=== PATIENT | female | born 1995 | race Caucasian/White ===

== ENCOUNTER → 2018-09-17 | Outpatient (CLI) | payer OTHER ==
[~2018-09-17] MED LIST: AMOX500C PO; ISOVUE-370 76% 100ML VIAL (Q9967) As Ordered ONE; MAGICMW SSP
--- NOTE | 2018-09-17 21:17 | REP ---
HYSTEROSALPINGOGRAM: Patient was referred for hysterosalpingogram. Referring clinician catheterized the cervix and injected the contrast. I obtained fluoroscopic images. Uterine cavity fills well with no filling defect. There is prompt opacification of bilateral fallopian tubes. They are normal in caliber. There is free intraperitoneal spillage bilaterally. IMPRESSION: Bilateral fallopian tube patency. 0.2 minutes fluoroscopy time utilized. Electronically Signed by Dex Schuler MD 09/18/2018 10:05 A
== END ==
LOC: M RADPRO 12:07
PROVIDERS: ATTEND Obstetrics & Gynecology
DX: N97.9 Female infertility, unspecified (principal); E28.2 Polycystic ovarian syndrome
CPT/HCPCS: 58340; 74740; Q9967

== ENCOUNTER → 2020-04-07 | Outpatient (CLI) | payer OTHER ==
[~2020-04-07] MED LIST changes: -ISOVUE-370 76% 100ML VIAL (Q9967) As Ordered ONE
--- NOTE | 2020-04-10 12:59 | ECHO ---
DATE OF PROCEDURE: 04/07/2020 Age: 24 Gender: Female REFERRING PHYSICIAN: Allan Berrios D.O. PATIENT LOCATION: Outpatient. REASON FOR STUDY: Heart murmur. 2D MEASUREMENTS: IVS 0.8 cm LV 3.9 cm LVPW 0.8 cm LA .8 cm Aorta 2.8 cm DOPPLER MEASUREMENT Peak velocity across the aortic valve 1.1 m/s Peak velocity across the LVOT 0.8 m/s Mitral E 0.69 Mitral A 0.76 with a ratio of 0.9 Maximum tricuspid valve velocity 1.9 m/s 2D COMMENTS: 1. Normal left ventricular size, wall thickness, and normal global left ventricular systolic function. The estimated left ventricular systolic ejection fraction is 60% to 65%. 2. Normal left atrium. Normal right atrium and right ventricle. 3. The atrial septum appeared to be normal without evidence of defect or shunt. 4. Normal aortic root. 5. Trace pericardial effusion noted. No evidence of cardiac tamponade. 6. The aortic valve, mitral valve, tricuspid valve, and pulmonic valve appeared to be normal. The proximal pulmonary artery branches were not well visualized. 7. The inferior vena cava was not well visualized. Doppler detects trace tricuspid regurgitation and trace pulmonic regurgitation. The calculated pulmonary artery systolic pressure was normal. IMPRESSION: 1. Normal global left ventricular systolic function. There are some features of left ventricular diastolic dysfunction manifested by abnormal relaxation. 2. Trace tricuspid regurgitation with a normal calculated pulmonary artery systolic pressure. 3. Trace pulmonic regurgitation. 4. Trace pericardial effusion, no evidence of cardiac tamponade. [facility]
== END ==
LOC: M CARPUL 10:37
PROVIDERS: ATTEND Emergency Medicine
DX: R01.1 Cardiac murmur, unspecified (principal)